=== PATIENT | male | born 1985 | race Caucasian/White ===

== ENCOUNTER 2021-12-23 19:47 | Emergency (ER) | payer OTHER ==
[~2021-12-23] VITALS: Ht 180.3 cm; Wt 77.3 kg
[2021-12-23 19:48] VITALS: BP 126/70
[2021-12-23] MEDS ORDERED: FLUT16H NASAL (19:58)
[2021-12-23 20:14] LABS: APPEARANCE,URINE TURBID (CLEAR); BILIRUBIN,URINE NEGATIVE (NEGATIVE); GLUCOSE, URINE (UA) NEGATIVE (NEGATIVE); KETONES,URINE NEGATIVE (NEGATIVE); LEUKOCYTE ESTERASE ,URINE NEGATIVE (NEGATIVE); NITRATE,URINE NEGATIVE (NEGATIVE); OCCULT BLOOD,URINE NEGATIVE (NEGATIVE); PROTEIN,URINE TRACE mg/dL (NEGATIVE); SPECIFIC GRAVITIY, URINE 1.022 (1.003-1.030); UROBILINOGEN,URINE <=1.0 mg/dL (<=1.0)
[2021-12-23 21:09] LABS: BASOPHILS % (AUTO) 0.2 % (0.0-2.0); EOSINOPHILS % (AUTO) 0.8 % (1.0-6.0); HEMATOCRIT 41.1 % (41-53); HEMOGLOBIN 14.1 g/dL (13.5-17.5); LYMPHOCYTES # (AUTO) 0.8 K/uL (1.0-4.8); LYMPHOCYTES % (AUTO) 13.8 % (22.0-44.0); MEAN CORPUSCULAR HEMOGLOBIN 26.6 pg (26.0-34.0); MEAN CORPUSCULAR HGB CONC 34.2 G/dL (31.0-37.0); MEAN CORPUSCULAR VOLUME 78 fL (80-100); MONOCYTES # (AUTO) 0.3 K/uL (0.1-1.0); MONOCYTES % (AUTO) 5.3 % (2.0-9.0); NEUTROPHILS # (AUTO) 4.7 K/uL (1.8-7.7); NEUTROPHILS % (AUTO) 79.9 % (40.0-70.0); PLATELET COUNT (AUTO) 289 K/uL (150-450); RED BLOOD CELL COUNT(AUTO) 5.28 MIL/uL (4.50-5.90); RED CELL DISTRIBUTION WIDTH 12.4 % (11.5-14.5)
[2021-12-23 21:18] LABS: ANION GAP 5 mmol/L (8-16); CARBON DIOXIDE 27 mmol/L (22-29); CHLORIDE 104 mmol/L (98-107); GLOMERULAR FILTR. RATE CALC > 60 mL/min (>60); GLUCOSE,RANDOM 104 mg/dL (70-110); POTASSIUM 4.2 mmol/L (3.5-5.1); SODIUM SERUM 136 mmol/L (136-145); UREA NITROGEN, BLOOD 15 mg/dL (7-18)
[2021-12-23 21:24] LABS: ALANINE AMINOTRANSFERASE 62 U/L (12-78); ALBUMIN 3.7 g/dL (3.4-5.0); ALKALINE PHOSPHATASE 78 U/L (46-116); ASPARTATE AMINOTRANSFERASE 20 U/L (15-37); BILIRUBIN,TOTAL 0.3 mg/dL (0.1-1.0); TOTAL PROTEIN, SERUM 7.2 g/dL (6.4-8.2)
[2021-12-23 21:32] LABS: COVID AG,FIA SOURCE NASOPHARYNGEAL
[2021-12-23 21:52] LABS: INFLUENZA TYPE A NEGATIVE FOR TYPE A (NEGATIVE); INFLUENZA TYPE B NEGATIVE FOR TYPE B (NEGATIVE); RAPID GROUP A STREP NEGATIVE (NEGATIVE)
[2021-12-23] MEDS ORDERED: DOXY50CA12 PO (22:47)
[2021-12-29 12:35] LABS: CHLAMYDIA DNA NAA,PHARYNGEAL Negative (Negative); N.GONORRHEA DNA NAA,PHARYNGEAL Negative (Negative)
== END 2021-12-23 23:03 | disposition home or self-care (01) ==
LOC: EMS 19:50
DX: N34.2 Other urethritis (principal); J02.9 Acute pharyngitis, unspecified; Z88.0 Allergy status to penicillin; Z20.822 Contact with and (suspected) exposure to COVID-19
CPT/HCPCS: 80053; 81003; 85025; 87081; 87430; 87491; 87591; 87804; 99283